=== PATIENT | female | born 1955 | race Hispanic/Latino ===

== ENCOUNTER → 2023-12-16 | Outpatient (CLI) | payer OTHER | END | disposition home or self-care (01) | LOC: SHCH 14:37 | PROVIDERS: ATTEND Internal Medicine | DX: I77.1 Stricture of artery (principal) | CPT/HCPCS: 93880 ==

== ENCOUNTER → 2024-04-14 | Outpatient (CLI) | payer OTHER ==
--- NOTE | 2024-04-16 09:02 | HMCSR ---
APPROVED REPORT Laterality: Bilateral Indications Claudication: , PAD, m79.604 VELOCITY AND DOPPLER WAVEFORM ANALYSIS TOEING STOCKINGS (R) 156.0cm/sec, Biphasic, TOEING STOCKINGS (L) 173.8cm/sec, Biphasic, Prof Fem Art. (R) 71.8cm/sec, Biphasic, Prof Fem Art. (L) 90.7cm/sec, Biphasic, Fem Art Prox. (R) 118.7cm/sec, Biphasic, Fem Art Prox. (L) 98.2cm/sec, Biphasic, Fem Art Mid. (R) 107.7cm/sec, Biphasic, Fem Art Mid. (L) 89.7cm/sec, Biphasic, Fem Art Dist (R) 103.5cm/sec, Biphasic, Fem Art Dist. (L) 70.0cm/sec, Biphasic, Pop Art(AK) (R) 74.5cm/sec, Biphasic, Pop Art (AK) (L) 83.4cm/sec, Biphasic, Pop Art (Fossa)(R) 78.7cm/sec, Biphasic, Pop Art (Fossa) (L) 65.5cm/sec, Biphasic, Pop Art(BK) (R) 100.8cm/sec, Biphasic, Pop Art (BK) (L) 102.1cm/sec, Biphasic, REPRODUCTION TECHNICIAN Prox. (R) 62.0cm/sec, Biphasic, REPRODUCTION TECHNICIAN Prox. (L) 77.3cm/sec, Biphasic, REPRODUCTION TECHNICIAN Mid. (R) 56.3cm/sec, Biphasic, REPRODUCTION TECHNICIAN Mid. (L) 110.4cm/sec, Biphasic, REPRODUCTION TECHNICIAN Dist. (R) 41.6cm/sec, Biphasic, REPRODUCTION TECHNICIAN Dist. (L) 46.5cm/sec, Biphasic, Per Art Prox. (R) 58.7cm/sec, Biphasic, Per Art Prox. (L) 88.3cm/sec, Biphasic, Per Art Mid. (R) 63.6cm/sec, Biphasic, Per Art Mid. (L) 85.6cm/sec, Biphasic, Per Art Dist. (R) 43.2cm/sec, Biphasic, Per Art Dist. (L) 58.0cm/sec, Biphasic, JOE Prox. (R) 92.6cm/sec, Biphasic, JOE Prox. (L) 87.0cm/sec, Biphasic, JOE Mid. (R) 64.8cm/sec, Biphasic JOE Mid. (L) 61.2cm/sec, Biphasic, JOE Dist. (R) 81.0cm/sec, Biphasic, JOE Dist. (L) 78.3cm/sec, Biphasic, Technologist Impression No evidence of significant arterial insufficiency of bilateral lower extremities. Conclusion No evidence of significant arterial insufficiency of bilateral lower extremities. Conclusion No evidence of significant arterial insufficiency of bilateral lower extremities.
== END | disposition home or self-care (01) ==
LOC: SHCH 09:00
PROVIDERS: ATTEND Internal Medicine
DX: M79.604 Pain in right leg (principal); I73.9 Peripheral vascular disease, unspecified
CPT/HCPCS: 93925